=== PATIENT | female | born 1990 | race Caucasian/White ===

== ENCOUNTER → 2018-06-07 | Outpatient (CLI) | payer OTHER ==
[~2018-06-07] MED LIST: DIPH25CA61 PO
[2018-06-07 10:54] LABS: MICROSCOPIC NOT IND
[2018-06-07 10:59] LABS: CULTURE INDICATED? NO
== END | disposition home or self-care (01) ==
LOC: LAB 10:09
PROVIDERS: ATTEND Student in an Organized Health Care Education/Training Program
DX: N39.0 Urinary tract infection, site not specified (principal)
CPT/HCPCS: 81003

== ENCOUNTER → 2018-06-10 | Outpatient (CLI) | payer OTHER ==
[~2018-06-10] MED LIST changes: +OMNIPAQUE 350 MG/ML, 100ML BOTTLE ONE
== END | disposition home or self-care (01) ==
LOC: RAD 15:30
PROVIDERS: ATTEND Nurse Practitioner Gerontology
DX: M41.85 Other forms of scoliosis, thoracolumbar region (principal); R31.0 Gross hematuria
CPT/HCPCS: 74178; Q9967

== ENCOUNTER → 2018-07-28 | Outpatient (CLI) | payer OTHER ==
[~2018-07-28] MED LIST changes: +LEVO1TAB5 PO; -OMNIPAQUE 350 MG/ML, 100ML BOTTLE ONE
[2018-07-28 16:18] LABS: MICROSCOPIC AUTO
== END | disposition home or self-care (01) ==
LOC: LAB 15:43
PROVIDERS: ATTEND Student in an Organized Health Care Education/Training Program
DX: Z01.818 Encounter for other preprocedural examination (principal); N39.41 Urge incontinence
CPT/HCPCS: 81001; 87086

== ENCOUNTER → 2018-08-01 | Outpatient (CLI) | payer OTHER | END | disposition home or self-care (01) | LOC: STAR 07:48 | PROVIDERS: ATTEND Student in an Organized Health Care Education/Training Program | DX: Z02.9 Encounter for administrative examinations, unspecified (principal) ==

== ENCOUNTER 2018-08-05 08:36 | Day surgery (SDC) | payer OTHER ==
[~2018-08-05] VITALS: Ht 162.6 cm; Wt 51.3 kg
[~2018-08-05 08:36] MED LIST changes: +HEPARIN 1,000 UNITS/ML, 10ML ONE
[2018-08-05 09:15] VITALS: BP 129/88
[2018-08-05] MEDS ORDERED: LACTATED RINGERS 1,000 ML IV SCH (09:22)
[2018-08-05] MEDS ORDERED: MIDAZOLAM 1 MG/ML, 2ML ONE (10:35)
[2018-08-05] MEDS ORDERED: FENTANYL PF 100 MCG/2ML ONE (10:35)
[2018-08-05] MEDS ORDERED: PROPOFOL 50 ML ONE (10:38)
[2018-08-05] MEDS ORDERED: DEXAMETHASONE 4 MG/ML, 1ML ONE (10:53)
[2018-08-05] MEDS ORDERED: LIDOCAINE 2% 100MG/5ML SYRINGE ONE (10:53)
[2018-08-05] MEDS ORDERED: ONDANSETRON 2MG/ML, 2ML ONE (10:53)
[2018-08-05] MEDS ORDERED: CIPROFLOXACIN/PMX 400MG/200ML 200 ML ONE (11:11)
[2018-08-05] MEDS ORDERED: MEPERIDINE/PF 50 MG/ML ONE (11:26)
[2018-08-05] MEDS ORDERED: SCOPOLAMINE PATCH, 1.5MG PATCH.TD72 TD ONE (11:58)
[2018-08-05] MEDS ORDERED: ONDANSETRON ODT 8 MG PO PRN (12:00)
[2018-08-05] MEDS ORDERED: ONDANSETRON 2MG/ML, 2ML IV PRN (12:00)
[2018-08-05] MEDS ORDERED: MORPHINE SULFATE 4 MG/ML, 1ML IVPush PRN (12:00)
[2018-08-05] MEDS ORDERED: KETOROLAC 30 MG/1 ML IV PRN (12:00)
[2018-08-05] MEDS ORDERED: MECLIZINE CHEWABLE 25 MG TAB PO PRN (12:00)
[2018-08-05] MEDS ORDERED: ACETAMINOPHEN 325 MG TABLET PO PRN (12:00)
[2018-08-05] MEDS ORDERED: OXYcodone 5 MG/5 ML ORAL.SOL UDC PO PRN (12:00)
[2018-08-05] MEDS ORDERED: PROCHLORPERAZINE 5 MG/ML, 2ML IV PRN (12:00)
[2018-08-05] MEDS ORDERED: FENTANYL PF 100 MCG/2ML IV PRN (12:00)
[2018-08-05] MEDS ORDERED: DIAZEPAM 5 MG/ML, 2ML IVPush PRN (12:00)
== END 2018-08-05 13:40 | disposition home or self-care (01) ==
LOC: OUT 08:36
PROVIDERS: ATTEND Student in an Organized Health Care Education/Training Program
DX: N81.2 Incomplete uterovaginal prolapse (principal); R39.89 Other symptoms and signs involving the genitourinary system; R31.9 Hematuria, unspecified; Z87.440 Personal history of urinary (tract) infections; Z98.890 Other specified postprocedural states
CPT/HCPCS: 52281; 81025; 87086; J0744; J1100; J1644; J2175; J2250; J2405; J2704; J3010

== ENCOUNTER → 2018-10-14 | Outpatient (CLI) | payer OTHER ==
[~2018-10-14] MED LIST changes: -HEPARIN 1,000 UNITS/ML, 10ML ONE
[2018-10-14 07:48] LABS: ALBUMIN 3.8 g/dL (3.4-5.0); ANION GAP 6 mmol/L (5-15); CALCIUM 8.7 mg/dL (8.5-10.1); CHLORIDE 108 mmol/L (98-107); CHOLESTEROL, TOTAL 172 mg/dL (140-239)
[2018-10-14 08:03] LABS: MEAN CORPUSCULAR HEMOGLOBIN 30.9 pg (27.0-34.8); MEAN CORPUSCULAR HGB CONC 33.8 g/dL (32.4-35.8); MEAN CORPUSCULAR VOLUME 91.5 fL (80-100); RED BLOOD COUNT 4.68 x10^6/uL (3.82-5.3); RED CELL DISTRIBUTION WIDTH 12.8 % (9.6-15.2)
[2018-10-14 08:17] LABS: % IRON SATURATION 30 % (20-55); ALANINE AMINOTRANSFERASE 22 U/L (12-78); ALKALINE PHOSPHATASE 54 U/L (45-117); BILIRUBIN,TOTAL 0.4 mg/dL (0.2-1.0); CHOL/HDL RATIO 3.3; FOLATE LEVEL 6.7 ng/mL (3.1-17.5); FREE T4 (FREE THYROXINE) 1.07 ng/dL (0.76-1.46); HDL CHOL % 30 % (28-40); HDL CHOLESTEROL (DIRECT) 52 mg/dL (40-60); IRON LEVEL 111 mcg/dL (50-170); LDL CHOLESTEROL,CALCULATED 98 mg/dL (54-169); LDL/HDL RATIO 1.9 (0.5-3.0); TOTAL IRON BINDING CAPACITY 370 mcg/dL (250-450); TOTAL PROTEIN 7.4 g/dL (6.4-8.2); TRANSFERRIN 300 mg/dL (200-360); TRIGLYCERIDES 112 mg/dL (50-200); VLDL CHOLESTEROL 22 mg/dL (0-25)
[2018-10-14 08:39] LABS: BASOPHILS # (AUTO) 0.03 x10^3/uL (0-0.1); BASOPHILS % (AUTO) 1 % (0-1); EOSINOPHILS # (AUTO) 0.15 x10^3/uL (0-0.4); EOSINOPHILS % (AUTO) 3 % (1-7); LYMPHOCYTES # (AUTO) 2.54 x10^3/uL (1-3.4); LYMPHOCYTES % (AUTO) 45 % (22-44); MD MORPH REVIEW ONLY; MEAN PLATELET VOLUME 11.1 fL (7.4-10.4); MONOCYTES # (AUTO) 0.32 x10^3/uL (0.2-0.8); MONOCYTES % (AUTO) 6 % (2-9); NEUTROPHILS % (AUTO) 46 % (42-75); PLATELET COUNT 141 x10^3/uL (130-400)
[2018-10-14 08:41] LABS: <PLATELET ESTIMATE> ADEQUATE; <RBC MORPHOLOGY> NORMAL
[2018-10-14 08:42] LABS: LARGE PLATELETS 2+
== END | disposition home or self-care (01) ==
LOC: LAB 07:18
PROVIDERS: ATTEND Nurse Practitioner Primary Care
DX: Z12.4 Encounter for screening for malignant neoplasm of cervix (principal); Z12.39 Encounter for other screening for malignant neoplasm of breast; Z12.11 Encounter for screening for malignant neoplasm of colon; Z13.220 Encounter for screening for lipoid disorders; R53.83 Other fatigue; N80.9 Endometriosis, unspecified
CPT/HCPCS: 36415; 80053; 80061; 82306; 82607; 82728; 82746; 83540; 83550; 83735; 84207; 84425; 84439; 84443; 84466; 84481; 85025

== ENCOUNTER → 2018-11-01 | Outpatient (CLI) | payer OTHER | END | disposition home or self-care (01) | LOC: LAB 07:31 | PROVIDERS: ATTEND Nurse Practitioner Primary Care | DX: Z12.4 Encounter for screening for malignant neoplasm of cervix (principal); Z12.39 Encounter for other screening for malignant neoplasm of breast; Z12.11 Encounter for screening for malignant neoplasm of colon; Z13.220 Encounter for screening for lipoid disorders; E55.9 Vitamin D deficiency, unspecified; N80.9 Endometriosis, unspecified; R53.83 Other fatigue; Z78.9 Other specified health status | CPT/HCPCS: 36415; 86225; 86235 ==

== ENCOUNTER → 2018-11-07 | Outpatient (CLI) | payer OTHER | END | disposition home or self-care (01) | LOC: CFH 13:26 | PROVIDERS: ATTEND Nurse Practitioner Primary Care | DX: E03.9 Hypothyroidism, unspecified (principal) | CPT/HCPCS: 76536 ==

== ENCOUNTER → 2018-12-06 | Outpatient (CLI) | payer OTHER ==
[2018-12-06 10:43] LABS: MICROSCOPIC NOT IND
[2018-12-06 10:44] LABS: BASOPHILS # (AUTO) 0.03 x10^3/uL (0-0.1); BASOPHILS % (AUTO) 0 % (0-1); EOSINOPHILS % (AUTO) 1 % (1-7); LYMPHOCYTES # (AUTO) 1.87 x10^3/uL (1-3.4); LYMPHOCYTES % (AUTO) 27 % (22-44); MD NO; MEAN CORPUSCULAR HEMOGLOBIN 31.1 pg (27.0-34.8); MEAN CORPUSCULAR HGB CONC 33.8 g/dL (32.4-35.8); MEAN CORPUSCULAR VOLUME 92.1 fL (80-100); MEAN PLATELET VOLUME 10.5 fL (7.4-10.4); MONOCYTES % (AUTO) 4 % (2-9); NEUTROPHILS # (AUTO) 4.57 x10^3/uL (1.8-6.8); NEUTROPHILS % (AUTO) 67 % (42-75); PLATELET COUNT 174 x10^3/uL (130-400); RED BLOOD COUNT 4.69 x10^6/uL (3.82-5.3); RED CELL DISTRIBUTION WIDTH 13.6 % (9.6-15.2)
[2018-12-06 10:45] LABS: CULTURE INDICATED? NO
[2018-12-06 11:25] LABS: FOLATE LEVEL 9.3 ng/mL (3.1-17.5); FREE T4 (FREE THYROXINE) 1.32 ng/dL (0.76-1.46); THYROID STIMULATING HORMONE 1.3 mIU/L (0.358-3.740)
== END | disposition home or self-care (01) ==
LOC: LAB 10:10
PROVIDERS: ATTEND Nurse Practitioner Primary Care
DX: Z13.220 Encounter for screening for lipoid disorders (principal); E55.9 Vitamin D deficiency, unspecified; E03.9 Hypothyroidism, unspecified; R79.9 Abnormal finding of blood chemistry, unspecified; R10.2 Pelvic and perineal pain; R53.83 Other fatigue; Z79.899 Other long term (current) drug therapy
CPT/HCPCS: 36415; 81003; 82607; 82728; 82746; 83516; 83540; 83550; 84439; 84443; 84466; 84481; 85025; 86376

== ENCOUNTER → 2018-12-22 | Outpatient (CLI) | payer OTHER ==
[2018-12-22 12:02] LABS: MICROSCOPIC NOT IND
[2018-12-22 12:07] LABS: CULTURE INDICATED? NO
== END | disposition home or self-care (01) ==
LOC: LAB 11:40
PROVIDERS: ATTEND Obstetrics & Gynecology Female Pelvic Medicine and Reconstructive Surgery
DX: R30.0 Dysuria (principal)
CPT/HCPCS: 81003; 87086

== ENCOUNTER → 2019-01-04 | Outpatient (CLI) | payer OTHER | END | disposition home or self-care (01) | LOC: CFH 15:56 | PROVIDERS: ATTEND Obstetrics & Gynecology Female Pelvic Medicine and Reconstructive Surgery | DX: N93.8 Other specified abnormal uterine and vaginal bleeding (principal); N85.4 Malposition of uterus | CPT/HCPCS: 76830 ==

== ENCOUNTER → 2019-02-20 | Outpatient (CLI) | payer OTHER ==
[2019-02-20 08:21] LABS: HCT (SEDRATE) 43.3 % (34.6-47.8)
== END | disposition home or self-care (01) ==
LOC: LAB 08:03
DX: R10.9 Unspecified abdominal pain (principal)
CPT/HCPCS: 36415; 85651; 86140

== ENCOUNTER → 2019-03-27 | Outpatient (CLI) | payer OTHER ==
[2019-03-27 10:21] LABS: CHOL/HDL RATIO 3.1; FREE T4 (FREE THYROXINE) 1.22 ng/dL (0.76-1.46); LDL/HDL RATIO 1.8 (0.5-3.0); THYROID STIMULATING HORMONE 2.16 mIU/L (0.358-3.740)
== END | disposition home or self-care (01) ==
LOC: LAB 09:36
PROVIDERS: ATTEND Nurse Practitioner Primary Care
DX: Z13.220 Encounter for screening for lipoid disorders (principal); E78.2 Mixed hyperlipidemia; E03.9 Hypothyroidism, unspecified; E55.9 Vitamin D deficiency, unspecified; M41.9 Scoliosis, unspecified; R10.2 Pelvic and perineal pain; R53.83 Other fatigue; R30.0 Dysuria; Z79.899 Other long term (current) drug therapy
CPT/HCPCS: 36415; 80061; 82306; 84439; 84443; 84481

== ENCOUNTER 2019-04-04 15:53 | Outpatient (CLI) | payer OTHER | END 2019-04-04 23:59 | disposition home or self-care (01) | LOC: CFH 15:53 | PROVIDERS: ATTEND Obstetrics & Gynecology | DX: N85.4 Malposition of uterus (principal) | CPT/HCPCS: 76830 ==

== ENCOUNTER 2019-06-27 09:00 | Outpatient (CLI) | payer OTHER ==
[2019-06-27 10:16] LABS: FOLATE LEVEL 5.3 ng/mL (3.1-17.5); FREE T4 (FREE THYROXINE) 1.15 ng/dL (0.76-1.46)
== END 2019-06-27 23:59 | disposition home or self-care (01) ==
LOC: LAB 09:00
PROVIDERS: ATTEND Nurse Practitioner Primary Care
DX: Z13.220 Encounter for screening for lipoid disorders (principal); E55.9 Vitamin D deficiency, unspecified; R53.83 Other fatigue; E03.9 Hypothyroidism, unspecified; M41.9 Scoliosis, unspecified; R10.9 Unspecified abdominal pain; Z79.899 Other long term (current) drug therapy
CPT/HCPCS: 36415; 82306; 82607; 82728; 82746; 83540; 83550; 84207; 84425; 84439; 84443; 84466; 84481; 86376; 86800

== ENCOUNTER → 2019-11-28 | Outpatient (CLI) | payer OTHER ==
[2019-11-28 08:29] LABS: ALBUMIN 3.8 g/dL (3.4-5.0); ANION GAP 6 mmol/L (5-15); CALCIUM 9.1 mg/dL (8.5-10.1); CHLORIDE 105 mmol/L (98-107)
[2019-11-28 08:30] LABS: MICROSCOPIC NOT IND
[2019-11-28 08:34] LABS: CULTURE INDICATED? NO
[2019-11-28 08:47] LABS: BASOPHILS # (AUTO) 0.04 x10^3/uL (0-0.1); BASOPHILS % (AUTO) 1 % (0-1); EOSINOPHILS # (AUTO) 0.15 x10^3/uL (0-0.4); EOSINOPHILS % (AUTO) 3 % (1-7); LYMPHOCYTES # (AUTO) 1.82 x10^3/uL (1-3.4); LYMPHOCYTES % (AUTO) 30 % (22-44); MD SCAN; MEAN CORPUSCULAR HEMOGLOBIN 31.4 pg (27.0-34.8); MEAN CORPUSCULAR HGB CONC 33.2 g/dL (32.4-35.8); MEAN CORPUSCULAR VOLUME 94.8 fL (80-100); MEAN PLATELET VOLUME 10.4 fL (7.4-10.4); MONOCYTES # (AUTO) 0.39 x10^3/uL (0.2-0.8); MONOCYTES % (AUTO) 6 % (2-9); NEUTROPHILS # (AUTO) 3.77 x10^3/uL (1.8-6.8); NEUTROPHILS % (AUTO) 61 % (42-75); PLATELET COUNT 190 x10^3/uL (130-400); RED BLOOD COUNT 4.82 x10^6/uL (3.82-5.3); RED CELL DISTRIBUTION WIDTH 13.2 % (9.6-15.2)
[2019-11-28 08:56] LABS: % IRON SATURATION 12 % (20-55); ALANINE AMINOTRANSFERASE 22 U/L (12-78); ALKALINE PHOSPHATASE 45 U/L (45-117); BILIRUBIN,TOTAL 0.3 mg/dL (0.2-1.0); CHOL/HDL RATIO 3.7; CHOLESTEROL, TOTAL 197 mg/dL (140-239); CREATININE 0.87 mg/dL (0.55-1.02); FOLATE LEVEL 2.9 ng/mL (3.1-17.5); FREE T4 (FREE THYROXINE) 1.25 ng/dL (0.76-1.46); HDL CHOL % 27 % (28-40); HDL CHOLESTEROL (DIRECT) 53 mg/dL (40-60); IRON LEVEL 60 mcg/dL (50-170); LDL CHOLESTEROL,CALCULATED 118 mg/dL (54-169); LDL/HDL RATIO 2.2 (0.5-3.0); TOTAL IRON BINDING CAPACITY 485 mcg/dL (250-450); TRANSFERRIN 360 mg/dL (200-360); TRIGLYCERIDES 130 mg/dL (50-200); VLDL CHOLESTEROL 26 mg/dL (0-25)
== END | disposition home or self-care (01) ==
LOC: LAB 07:57
PROVIDERS: ATTEND Nurse Practitioner Primary Care
DX: Z13.220 Encounter for screening for lipoid disorders (principal); E55.9 Vitamin D deficiency, unspecified; E03.9 Hypothyroidism, unspecified; M41.9 Scoliosis, unspecified; R10.9 Unspecified abdominal pain; R53.83 Other fatigue; Z79.899 Other long term (current) drug therapy
CPT/HCPCS: 36415; 80053; 80061; 81003; 82306; 82607; 82728; 82746; 83540; 83550; 84207; 84425; 84439; 84443; 84466; 85025

== ENCOUNTER 2019-12-11 07:41 | Emergency (ER) | payer OTHER ==
[~2019-12-11] VITALS: Ht 157.5 cm; Wt 51.1 kg
[2019-12-11] MEDS ORDERED: ASHLYNA (07:59)
[2019-12-11 08:20] LABS: BASOPHILS # (AUTO) 0.03 x10^3/uL (0-0.1); BASOPHILS % (AUTO) 1 % (0-1); EOSINOPHILS # (AUTO) 0.25 x10^3/uL (0-0.4); EOSINOPHILS % (AUTO) 4 % (1-7); LYMPHOCYTES # (AUTO) 2.35 x10^3/uL (1-3.4); LYMPHOCYTES % (AUTO) 37 % (22-44); MD NO; MEAN CORPUSCULAR HEMOGLOBIN 31.5 pg (27.0-34.8); MEAN CORPUSCULAR HGB CONC 33.5 g/dL (32.4-35.8); MEAN PLATELET VOLUME 10.6 fL (7.4-10.4); MONOCYTES # (AUTO) 0.39 x10^3/uL (0.2-0.8); MONOCYTES % (AUTO) 6 % (2-9); NEUTROPHILS # (AUTO) 3.35 x10^3/uL (1.8-6.8); NEUTROPHILS % (AUTO) 53 % (42-75); PLATELET COUNT 153 x10^3/uL (130-400); RED BLOOD COUNT 4.45 x10^6/uL (3.82-5.3); RED CELL DISTRIBUTION WIDTH 13.1 % (9.6-15.2)
[2019-12-11 08:31] LABS: ALBUMIN 3.3 g/dL (3.4-5.0); ANION GAP 5 mmol/L (5-15); CALCIUM 8.8 mg/dL (8.5-10.1); CHLORIDE 108 mmol/L (98-107)
[2019-12-11 08:37] LABS: ALANINE AMINOTRANSFERASE 23 U/L (12-78); ALKALINE PHOSPHATASE 39 U/L (45-117); BILIRUBIN,TOTAL 0.3 mg/dL (0.2-1.0); CREATININE 0.76 mg/dL (0.55-1.02); TOTAL PROTEIN 6.8 g/dL (6.4-8.2)
--- NOTE | 2019-12-11 09:02 | NUR ---
PT UPRIGHT ON GURNEY AWAKE & COMFORTABLE, RESPONDS APPROP TO STAFF, NAD & DENIES LIGHTHEADEDNESS AT THIS TIME, COMFORT MEASURES PROVIDED, CALL LIGHT WITHIN REACH.
[2019-12-11 09:06] LABS: MICROSCOPIC AUTO
[2019-12-11 09:07] LABS: CULTURE INDICATED? NO
--- NOTE | 2019-12-11 10:00 | NUR ---
PT REMAINS UPRIGHT ON GURNEY AWAKE & COMFORTABLE, RESPONDS APPROP TO STAFF, AWAITING DC INSTRUCTIONS, NONEEDS AT THIS TIME, CALL LIGHT WITHIN REACH.
[2019-12-11 10:19] VITALS: BP 134/76
--- NOTE | 2019-12-11 10:35 | NUR ---
Patient given discharge instructions and they have confirmed that they understand the instructions. Patient ambulatory with steady gait.
== END 2019-12-11 10:36 | disposition home or self-care (01) ==
LOC: ED 10:20
DX: R42 Dizziness and giddiness (principal)
CPT/HCPCS: 36415; 80053; 81001; 84703; 85025; 93005; 99284

== ENCOUNTER → 2020-02-26 | Outpatient (CLI) | payer OTHER ==
[~2020-02-26] MED LIST changes: +ASHLYNA
[2020-02-26 11:09] LABS: FOLATE LEVEL 2.7 ng/mL (3.1-17.5)
[2020-02-26 11:10] LABS: MICROSCOPIC NOT IND
[2020-02-26 11:29] LABS: CULTURE INDICATED? NO
[2020-02-26 11:49] LABS: MD YES; MEAN CORPUSCULAR HEMOGLOBIN 31.8 pg (27.0-34.8); MEAN CORPUSCULAR HGB CONC 33.9 g/dL (32.4-35.8); MEAN CORPUSCULAR VOLUME 93.8 fL (80-100); RED BLOOD COUNT 4.72 x10^6/uL (3.82-5.3); RED CELL DISTRIBUTION WIDTH 13.8 % (9.6-15.2)
[2020-02-26 11:50] LABS: BAND#(MANUAL) 0.07 x10^3/uL; BANDS%(MANUAL) 1 % (0-7); LYMPH#(MANUAL) 2.03 x10^3/uL (1-3.4); LYMPHS% (MANUAL) 29 % (22-44); MONOS#(MANUAL) 0.35 x10^3/uL (0.3-2.7); MONOS% (MANUAL) 5 % (2-9); SEG#(MANUAL) 4.55 x10^3/uL (1.8-6.8); SEGS% (MANUAL) 65 % (42-75)
[2020-02-26 11:53] LABS: <PLATELET ESTIMATE> ADEQUATE; <RBC MORPHOLOGY> NORMAL; MEAN PLATELET VOLUME 10.9 fL (7.4-10.4); PLATELET COUNT 174 x10^3/uL (130-400)
[2020-02-26 11:54] LABS: LARGE PLATELETS 1+
== END | disposition home or self-care (01) ==
LOC: LAB 10:10
PROVIDERS: ATTEND Nurse Practitioner Primary Care
DX: Z13.220 Encounter for screening for lipoid disorders (principal); R53.83 Other fatigue; E55.9 Vitamin D deficiency, unspecified; E04.9 Nontoxic goiter, unspecified; M41.9 Scoliosis, unspecified; R10.9 Unspecified abdominal pain; B00.9 Herpesviral infection, unspecified; R30.0 Dysuria; E53.8 Deficiency of other specified B group vitamins; E61.1 Iron deficiency; R10.2 Pelvic and perineal pain; K58.9 Irritable bowel syndrome, unspecified; E78.2 Mixed hyperlipidemia; Z79.899 Other long term (current) drug therapy
CPT/HCPCS: 36415; 81003; 82607; 82728; 82746; 83540; 83550; 84207; 84466; 85025

== ENCOUNTER → 2020-07-26 | Outpatient (CLI) | payer OTHER | END | disposition home or self-care (01) | LOC: CFH 16:19 | PROVIDERS: ATTEND Obstetrics & Gynecology | DX: N93.8 Other specified abnormal uterine and vaginal bleeding (principal); D21.9 Benign neoplasm of connective and other soft tissue, unspecified | CPT/HCPCS: 76856 ==

== ENCOUNTER → 2020-09-02 | Outpatient (CLI) | payer OTHER ==
[2020-09-02 09:41] LABS: BASOPHILS % (AUTO) 0 % (0-1); EOSINOPHILS % (AUTO) 2 % (1-7); LYMPHOCYTES % (AUTO) 31 % (22-44); MEAN CORPUSCULAR HEMOGLOBIN 30.8 pg (27.0-34.8); MEAN CORPUSCULAR HGB CONC 33.1 g/dL (32.4-35.8); MEAN PLATELET VOLUME 11.6 fL (7.4-10.4); MONOCYTES % (AUTO) 5 % (2-9); NEUTROPHILS % (AUTO) 61 % (42-75); PLATELET COUNT 174 x10^3/uL (130-400); RED BLOOD COUNT 4.84 x10^6/uL (3.82-5.3); RED CELL DISTRIBUTION WIDTH 13.7 % (9.6-15.2)
[2020-09-02 09:59] LABS: FOLATE LEVEL 2.7 ng/mL (3.1-17.5); FREE T4 (FREE THYROXINE) 1.05 ng/dL (0.76-1.46)
[2020-09-02 10:11] LABS: MD NO
== END | disposition home or self-care (01) ==
LOC: LAB 09:02
PROVIDERS: ATTEND Nurse Practitioner Primary Care
DX: Z13.220 Encounter for screening for lipoid disorders (principal); E55.9 Vitamin D deficiency, unspecified; E03.9 Hypothyroidism, unspecified; R30.0 Dysuria; E53.8 Deficiency of other specified B group vitamins; E78.2 Mixed hyperlipidemia; E61.1 Iron deficiency; R10.9 Unspecified abdominal pain; R10.2 Pelvic and perineal pain; K58.9 Irritable bowel syndrome, unspecified; M41.9 Scoliosis, unspecified; Z79.899 Other long term (current) drug therapy
CPT/HCPCS: 36415; 82306; 82525; 82607; 82652; 82728; 82746; 83540; 83550; 84207; 84425; 84439; 84443; 84466; 84481; 84630; 85025

== ENCOUNTER 2021-01-30 13:51 | Outpatient (CLI) | payer OTHER | END 2021-01-30 23:59 | disposition home or self-care (01) | LOC: RAD 13:51 | DX: J02.0 Streptococcal pharyngitis (principal) | CPT/HCPCS: 76536 ==

== ENCOUNTER → 2021-02-26 | Outpatient (CLI) | payer OTHER ==
[2021-02-26 13:33] LABS: BASOPHILS % (AUTO) 0 % (0-1); EOSINOPHILS % (AUTO) 1 % (1-7); LYMPHOCYTES % (AUTO) 19 % (22-44); MEAN CORPUSCULAR HEMOGLOBIN 31.1 pg (27.0-34.8); MEAN CORPUSCULAR HGB CONC 33.8 g/dL (32.4-35.8); MEAN PLATELET VOLUME 11.1 fL (7.4-10.4); MONOCYTES % (AUTO) 4 % (2-9); NEUTROPHILS % (AUTO) 76 % (42-75); PLATELET COUNT 179 x10^3/uL (130-400); RED BLOOD COUNT 4.77 x10^6/uL (3.82-5.3); RED CELL DISTRIBUTION WIDTH 13.1 % (9.6-15.2)
[2021-02-26 13:37] LABS: MD NO
[2021-02-26 13:41] LABS: ALANINE AMINOTRANSFERASE 37 U/L (12-78); ALBUMIN 3.6 g/dL (3.4-5.0); ANION GAP 3 mmol/L (5-15); CALCIUM 8.8 mg/dL (8.5-10.1); CHLORIDE 106 mmol/L (98-107)
[2021-02-26 13:52] LABS: ALKALINE PHOSPHATASE 62 U/L (45-117); BILIRUBIN,TOTAL 0.3 mg/dL (0.2-1.0); CREATININE 0.88 mg/dL (0.55-1.02); FREE T4 (FREE THYROXINE) 1.02 ng/dL (0.76-1.46); TOTAL PROTEIN 7.6 g/dL (6.4-8.2)
== END | disposition home or self-care (01) ==
LOC: LAB 13:14
PROVIDERS: ATTEND Nurse Practitioner Obstetrics & Gynecology
DX: N93.8 Other specified abnormal uterine and vaginal bleeding (principal); R10.2 Pelvic and perineal pain; E03.9 Hypothyroidism, unspecified
CPT/HCPCS: 36415; 80053; 84439; 84443; 84481; 85025

== ENCOUNTER → 2021-03-05 | Outpatient (CLI) | payer OTHER ==
[2021-03-05 12:15] LABS: CHOL/HDL RATIO 3.1; FOLATE LEVEL 4.6 ng/mL (3.1-17.5); LDL/HDL RATIO 1.6 (0.5-3.0)
== END | disposition home or self-care (01) ==
LOC: LAB 11:30
PROVIDERS: ATTEND Nurse Practitioner Family
DX: Z13.811 Encounter for screening for lower gastrointestinal disorder (principal); E03.9 Hypothyroidism, unspecified; N80.9 Endometriosis, unspecified; R10.30 Lower abdominal pain, unspecified; Z86.39 Personal history of other endocrine, nutritional and metabolic disease
CPT/HCPCS: 36415; 80061; 82728; 82746; 82784; 83516; 83540; 83550; 86255

== ENCOUNTER → 2021-03-07 | Outpatient (CLI) | payer OTHER | END | disposition home or self-care (01) | LOC: CFH 14:15 | PROVIDERS: ATTEND Obstetrics & Gynecology Female Pelvic Medicine and Reconstructive Surgery | DX: N85.4 Malposition of uterus (principal); R10.2 Pelvic and perineal pain | CPT/HCPCS: 76830 ==

== ENCOUNTER → 2021-03-26 | Outpatient (CLI) | payer OTHER ==
[~2021-03-26] MED LIST changes: +OMNIPAQUE 350 MG/ML, 100ML BOTTLE ONE
== END | disposition home or self-care (01) ==
LOC: RAD 13:03
PROVIDERS: ATTEND Nurse Practitioner Family
DX: R59.1 Generalized enlarged lymph nodes (principal)
CPT/HCPCS: 70491; Q9967

== ENCOUNTER 2021-06-02 15:05 | Emergency (ER) | payer OTHER ==
[~2021-06-02] VITALS: Ht 157.5 cm; Wt 55.0 kg
[~2021-06-02 15:05] MED LIST changes: -OMNIPAQUE 350 MG/ML, 100ML BOTTLE ONE
[2021-06-02 15:55] VITALS: BP 150/95
== END 2021-06-02 18:36 | disposition home or self-care (01) ==
LOC: ED 15:35
DX: Z00.00 Encounter for general adult medical examination without abnormal findings (principal); Z20.822 Contact with and (suspected) exposure to COVID-19
CPT/HCPCS: 99283; U0003; U0005